=== PATIENT | male | born 1950 | race Caucasian/White ===

== ENCOUNTER → 2022-03-13 14:05 | Outpatient (BNVA) | payer SELFPAY | PROVIDERS: PCP Family Medicine; Visit Provider Psychiatry & Neurology Psychiatry | DX: F40.01 Agoraphobia with panic disorder (principal) | CPT/HCPCS: 99212 ==

== ENCOUNTER → 2022-07-03 13:47 | Outpatient (BNVA) | payer SELFPAY | PROVIDERS: PCP Family Medicine; Visit Provider Psychiatry & Neurology Psychiatry | DX: F40.01 Agoraphobia with panic disorder (principal) | CPT/HCPCS: 90833; 99212 ==

== ENCOUNTER 2023-01-01 15:30 | Outpatient (AMB) | payer SELFPAY ==
--- NOTE | 2024-01-06 10:04 | A.OFFPSYCH_ITS ---
Intake Intake Visit Reasons: depression Allergies No Known Allergies Allergy (Verified 03/13/22 14:16) HPI- Psychiatric Chief Complaint: depression HPI Narrative: Patient seen psychiatric follow-up. Patient has a history of panic disorder with agoraphobia and has for many years had a balancing act between how far he can drive without contributing to anxiety or having panic. His daughter is living in [place] have tried antidepressants in the past to see if SSRIs would help block panic attacks and improve approaching agoraphobia 6 symptoms this did not seem to be helpful in the past. Have discussed with the patient risks of chronic use of benzodiazepines which has been most effective for him and he is on a steady state dose of clonazepam denies feeling overmedicated or cognitive issues. He is aware we have discussed potential long-term consequences including possible increased risk of cognitive impairment or dementia. No evidence of abuse or tolerance or overuse. No evidence of diversion. 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 Antidepressant augmentation was never particularly helpful managing symptoms Mental Status Exam Mental Status Exam Patient Appearance: Well Grooomed Patient Orientation: Person, Place, Time and Situation Level of Consciousness: Awake Patient Behavior: Appropriate Mood Description: Anxious Affect Description: Appropriate and Blunted Patient Cognition Impaired: No Ability to Follow Directions: Excellent Speech Pattern: Clear Memory Description: Intact Thought Process: Intact Thought Content: positive for Intact Depressive Symptoms: Increased Anxiety Judgement and Insight: Patient with some recent increased anxiety unclear exactly what this is related to question daughter in [place] question issues related to getting house complete Assessment and Plan Assessment & Plan (1) Panic disorder with agoraphobia: Status: Acute Code(s): F40.01 - Agoraphobia with panic disorder Plan Discussed issues related to stabilizing agoraphobia symptoms and occasional panic attack. Also discussed use of clonazepam wafer if needed. Mood generally stable patient has shame and embarrassment the round panic disorder and agoraphobia always been something of an issue in the background he has been a prominent an active member in his community. Generally taking clonazepam 0.5 mg b.i.d. with an extra half as needed have discussed potential use antidepressant to help block panic attacks maybe blunt agoraphobia patient has tried challenging his comfort system over time and this has led to a certain balance in what he can and can not do Counseling and coordination of Care Details-Self Mgmt counseling: Issues related to managing anxiety and its impact Medication management counseling: Effectiveness, Side effects and Dosing range Diagnosis and Prognosis Counseling: Adequacy of current interventions Details: I spent [40] minutes reviewing the record, seeing the patient and documenting in the medical record. Counseling provided to the patient/caregiver as outlined below. Addressed patient/caregiver concerns regarding current medication regime including effective adherence. Addressed patient/caregiver concerns regarding diagnosis and prognosis including accuracy of diagnosis, prognosis over time, impact of diagnosis. Addressed patient/caregiver concerns regarding impact of recent stressors. 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
== END 2023-01-01 16:03 | disposition home or self-care (01) ==
LOC: HO.HOP 15:30
PROVIDERS: PCP Family Medicine; Visit Provider Psychiatry & Neurology Psychiatry
DX: F40.01 Agoraphobia with panic disorder (principal)
CPT/HCPCS: 99499

== ENCOUNTER → 2023-01-01 15:30 | Outpatient (BNVA) | payer SELFPAY | PROVIDERS: PCP Family Medicine; Visit Provider Psychiatry & Neurology Psychiatry ==

== ENCOUNTER → 2023-06-06 12:51 | Outpatient (BNVA) | payer OTHER, SELFPAY | PROVIDERS: PCP Family Medicine; Visit Provider Psychiatry & Neurology Psychiatry | DX: F40.01 Agoraphobia with panic disorder (principal) | CPT/HCPCS: 99212 ==

== ENCOUNTER 2023-06-06 13:11 | Outpatient (AMB) | payer OTHER, SELFPAY ==
--- NOTE | 2023-06-06 13:39 | A.OFFPSYCH_ITS ---
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 in spite of this has been successful [employer] Antidepressant augmentation was never particularly helpful managing symptoms Mental Status Exam Mental Status Exam Patient Appearance: Well Grooomed Patient Orientation: Person, Place, Time and Situation Level of Consciousness: Awake Patient Behavior: Appropriate Mood Description: Calm, Appropriate and Anxious Affect Description: Appropriate and Blunted Patient Cognition Impaired: No Ability to Follow Directions: Excellent Speech Pattern: Clear Memory Description: Intact Thought Process: Intact Thought Content: positive for Intact Depressive Symptoms: Increased Anxiety Judgement and Insight: Patient somewhat blunted some anxiety regarding how he could travel to [place] if needed Assessment and Plan Assessment & Plan (1) Panic disorder with agoraphobia: Status: Acute Code(s): F40.01 - Agoraphobia with panic disorder Plan pt generally stable did not find mirtazapine helpful evidence of abuse tolerance of clonazepam Medications: Discontinued 2 mirtazapine Discontinued Reason: Doctor's Order orally bedtime; 1/2-1 bedtime 30 tabs 1RF Counseling and coordination of Care Diagnosis and Prognosis Counseling: Problematic behaviors secondary to diagnosis and Adequacy of current interventions Details: I spent [38] minutes reviewing the record, seeing the patient and documenting in the medical record. Counseling provided to the patient/caregiver as outlined below. Addressed patient/caregiver concerns regarding current medication regime including effective adherence. Addressed patient/caregiver concerns regarding diagnosis and prognosis including accuracy of diagnosis, prognosis over time, impact of diagnosis. Addressed patient/caregiver concerns regarding impact of recent stressors. 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
== END 2023-06-06 13:53 | disposition home or self-care (01) ==
PROVIDERS: PCP Family Medicine; Visit Provider Psychiatry & Neurology Psychiatry
DX: F40.01 Agoraphobia with panic disorder (principal)
CPT/HCPCS: 90833; 99213

== ENCOUNTER 2023-10-03 13:29 | Outpatient (AMB) | payer SELFPAY ==
--- NOTE | 2024-01-08 12:36 | A.OFFPSYCH_ITS ---
Intake Intake Visit Reasons: Depression Allergies No Known Allergies Allergy (Verified 03/13/22 14:16) HPI- Psychiatric Chief Complaint: Depression HPI Narrative: Patient seen psychiatric follow-up. Has had some random panic which is somewhat unusual for him. One episode where he was not able to drive to the usual place that he was able to drive to her difficult time figuring out exactly handle this. Chronic issues related to his daughter being in [place]. 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 Antidepressant augmentation was never particularly helpful managing symptoms Mental Status Exam Mental Status Exam Patient Appearance: Well Grooomed Patient Orientation: Person, Place, Time and Situation Level of Consciousness: Awake Patient Behavior: Appropriate Mood Description: Appropriate and Anxious Affect Description: Appropriate and Blunted Patient Cognition Impaired: No Ability to Follow Directions: Excellent Speech Pattern: Clear Memory Description: Intact Thought Process: Intact Thought Content: positive for Intact Depressive Symptoms: Increased Anxiety Judgement and Insight: Patient somewhat blunted some anxiety finishing house recent episodes of panic Assessment and Plan Assessment & Plan (1) Panic disorder with agoraphobia: Status: Acute Code(s): F40.01 - Agoraphobia with panic disorder (2) Hypercholesteremia: Status: Acute Code(s): E78.00 - Pure hypercholesterolemia, unspecified Plan Patient again has not felt that augmentation antidepressants to block anxiety and panic attacks been helpful previously. He does feel secure taking relatively low-dose clonazepam 0.5 b.i.d. generally he is aware of potential long-term risks including increased risk possibly of dementia cognitively patient is intact. He does remain quite active Counseling and coordination of Care Details-Self Mgmt counseling: Issues related to managing anxiety stress potential for panic and how to manage this particularly when at times interfering. Question any relish anxiety to ongoing stress of building care home/Legacy house overlooking the [facility] Patient is quite capable and competent within his fear is leery changes that he can not control that has made at times dealing with agoraphobia panic attacks difficult Details-Med Mgmt counseling: Alternative treatments medications reviewed Diagnosis and Prognosis Counseling: Prognosis over time, Problematic behaviors secondary to diagnosis and Adequacy of current interventions Details: I spent [40] minutes reviewing the record, seeing the patient and documenting in the medical record. Counseling provided to the patient/caregiver as outlined below. Addressed patient/caregiver concerns regarding current medication regime including effective adherence. Addressed patient/caregiver concerns regarding diagnosis and prognosis including accuracy of diagnosis, prognosis over time, impact of diagnosis. Addressed patient/caregiver concerns regarding impact of recent stressors. 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
== END 2023-10-03 14:12 | disposition home or self-care (01) ==
LOC: HO.HOP 13:29
PROVIDERS: PCP Family Medicine; Visit Provider Psychiatry & Neurology Psychiatry
DX: F40.01 Agoraphobia with panic disorder (principal); E78.00 Pure hypercholesterolemia, unspecified
CPT/HCPCS: 99499

== ENCOUNTER → 2023-10-03 13:29 | Outpatient (BNVA) | payer SELFPAY | PROVIDERS: PCP Family Medicine; Visit Provider Psychiatry & Neurology Psychiatry ==

== ENCOUNTER 2024-02-05 13:28 | Outpatient (AMB) | payer SELFPAY ==
--- NOTE | 2024-02-05 14:00 | MHC.OFFVISPS ---
Intake Intake Visit Reasons: depression Allergies No Known Allergies Allergy (Verified 03/13/22 14:16) HPI- Psychiatric Chief Complaint: depression HPI Narrative: Pt seen in f/u has been more anxious regarding upcoming election pts mood has been ok generally has been traumatized by past panic attack starting 50 yrs ago daughter and s in law will not be reurning to [facility] but will be moving to [place] . 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 Antidepressant augmentation was never particularly helpful managing symptoms Mental Status Exam Mental Status Exam Patient Appearance: Well Grooomed Patient Orientation: Person, Place, Time and Situation Level of Consciousness: Awake Patient Behavior: Appropriate Mood Description: Appropriate and Anxious Affect Description: Appropriate and Blunted Patient Cognition Impaired: No Ability to Follow Directions: Excellent Speech Pattern: Clear Memory Description: Intact Thought Process: Intact Thought Content: positive for Intact Depressive Symptoms: Increased Anxiety Judgement and Insight: Patient somewhat blunted with inc anxiety regarding his panic and his daughter moving Assessment and Plan Assessment & Plan (1) Panic disorder with agoraphobia: Status: Acute Code(s): F40.01 - Agoraphobia with panic disorder (2) Hypercholesteremia: Status: Acute Code(s): E78.00 - Pure hypercholesterolemia, unspecified Plan have reviewed options to add ssri or snri to help dec panic and agoraphobic sx can also do more intensive cbt behavioral tx for panic Counseling and coordination of Care Details-Self Mgmt counseling: Issues related to having chronic panic agoraphobia its effects on his life and situation , effects on qol relations with d and ? of shame continue to encourage maintaining current fx Medication management counseling: Effectiveness and Side effects Details-Med Mgmt counseling: No diversion or tolerance with long-term relatively low-dose clonazepam use Diagnosis and Prognosis Counseling: Accuracy of diagnosis, Prognosis over time, Impact of diagnosis on life functions and Adequacy of current interventions Details: I spent [38] minutes reviewing the record, seeing the patient and documenting in the medical record. Counseling provided to the patient/caregiver as outlined below. Addressed patient/caregiver concerns regarding current medication regime including effective adherence. Addressed patient/caregiver concerns regarding diagnosis and prognosis including accuracy of diagnosis, prognosis over time, impact of diagnosis. Addressed patient/caregiver concerns regarding impact of recent stressors. 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
== END 2024-02-05 14:42 | disposition home or self-care (01) ==
LOC: HO.HOP 13:28
PROVIDERS: PCP Family Medicine; Visit Provider Psychiatry & Neurology Psychiatry
DX: F40.01 Agoraphobia with panic disorder (principal); E78.00 Pure hypercholesterolemia, unspecified
CPT/HCPCS: 99214

== ENCOUNTER → 2024-02-05 13:28 | Outpatient (BNVA) | payer SELFPAY | PROVIDERS: PCP Family Medicine; Visit Provider Psychiatry & Neurology Psychiatry | DX: F40.01 Agoraphobia with panic disorder (principal); E78.00 Pure hypercholesterolemia, unspecified | CPT/HCPCS: 99212 ==

== ENCOUNTER 2024-05-18 12:02 | Outpatient (AMB) | payer MEDICARE, SELFPAY ==
--- NOTE | 2024-05-18 12:17 | A.OFFPSYCH_ITS ---
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 Antidepressant augmentation was never particularly helpful managing symptoms Mental Status Exam Mental Status Exam Patient Appearance: Well Grooomed Patient Orientation: Person, Place, Time and Situation Level of Consciousness: Awake Patient Behavior: Appropriate Mood Description: Appropriate and Anxious Affect Description: Appropriate and Blunted Patient Cognition Impaired: No Ability to Follow Directions: Excellent Speech Pattern: Clear Memory Description: Intact Thought Process: Intact Thought Content: positive for Intact Depressive Symptoms: Increased Anxiety Judgement and Insight: Patient somewhat blunted with inc anxiety regarding his panic and his daughter moving Assessment and Plan Assessment & Plan (1) Panic disorder with agoraphobia: Status: Acute Code(s): F40.01 - Agoraphobia with panic disorder Plan pt seen in f/u [facility] has had some inc anxiety we discussed diff strategies and tx options Counseling and coordination of Care Pt. Self Management counseling: Breathing Medication management counseling: Effectiveness and Side effects Diagnosis and Prognosis Counseling: Adequacy of current interventions Details: I spent [35] minutes reviewing the record, seeing the patient and documenting in the medical record. Counseling provided to the patient/caregiver as outlined below. Addressed patient/caregiver concerns regarding current medication regime including effective adherence. Addressed patient/caregiver concerns regarding diagnosis and prognosis including accuracy of diagnosis, prognosis over time, impact of diagnosis. Addressed patient/caregiver concerns regarding impact of recent stressors. 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
--- OUTSIDE RECORDS SUMMARY | 2024-05-18 13:26 | XMS_ITS | Continuity of Care Document ---
Author Organization [facility] Address [address] [place] [address]- Care Team Providers Care Medicine Teacher Name Role Phone Melinda MENDIOLA, Trae Brandon Primary Care Physician Encounter [facility] Date(s): 03/31/24 - 04/30/24 [facility] Medicine [address] [place] [id number] Encounter Type: Triage Allergies, Adverse Reactions, Alerts No Known Allergies Immunizations Given and Recorded Vaccine Date Status Refusal Reason SARS-CoV-2 (COVID-19) mRNA-1273 vaccine 1 01/24/22 Recorded SARS-CoV-2 (COVID-19) mRNA-1273 vaccine 03/02/21 R ecorded SARS-CoV-2 (COVID-19) mRNA-1273 vaccine 08/12/20 R ecorded SARS-CoV-2 (COVID-19) mRNA-1273 vaccine 07/15/20 R ecorded tetanus/diphtheria/pertussis, acel(Tdap) 2 06/05/21 Given pneumococcal 13-valent vaccine 3 06/05/21 Given Zoster Vaccine Live 02/15/14 Given tetanus-diphtheria toxoids (Td) 04/15/00 Given 1Result Comment: bivalent booster @ [facility] 2Result Comment: [id number] 3Result Comment: [id number] Medications Aspirin = 81 mg, By Mouth, Daily, 0 Refills, 03/20/07 12:23:01 PM EST Start Date: 03/20/07 Status: Ordered Repeat number: 1 atorvastatin 40 mg oral tablet 1 tablet, By Mouth, Daily, # 90 tablet, 1 Refills, Maintenance, 04/21/24 1:29:00 PM EST, [id number], 175, cm, 04/01/24 14:23:00 EST, Height, 84.8, kg, 08/26/23 10:56:00 EDT, Dry Weight Start Date: 04/21/24 Status: Ordered Quantity: 90.0 Unit: tablet Repeat number: 2 CoQ10 = 300 mg, By Mouth, Daily, 0 Refills, Maintenance, 10/14/17 10:35:31 AM EDT Start Date: 10/14/17 Status: Ordered Repeat number: 1 Multivitamin By Mouth, Daily, 0 Refills, Maintenance, 03/01/15 12:01:23 PM EST Start Date: 03/01/15 Status: Ordered Repeat number: 1 [employer] 1 capsule, By Mouth, Daily, 0 Refills, Maintenance, 03/01/15 12:00:40 PM EST Start Date: 03/01/15 Status: Ordered Repeat number: 1 Vitamin B12 0 Refills, Maintenance, 10/14/17 10:35:25 AM EDT Start Date: 10/14/17 Status: Ordered Repeat number: 1 Vitamin C By Mouth, Daily, 0 Refills, Maintenance, 10/14/17 10:35:14 AM EDT Start Date: 10/14/17 Status: Ordered Repeat number: 1 Vitamin D3 By Mouth, 0 Refills, Maintenance, 10/14/17 10:35:20 AM EDT Start Date: 10/14/17 Status: Ordered Repeat number: 1 Problem List Condition Confirmation Course Effective Dates Status H ealth Status Informant Hypertension Confirmed Active Mild aortic stenosis Confirmed Active 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, 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 Overweight Confirmed Active Prediabetes Confirmed Active Social History Social History Type Response Smoking Status Never smoker; Other: recreational smoker, quit smoking >20 years ago.; entered on: 10/14/17 Sex Sex Representation Male (finding) Patient Care team information Care Team Personnel Name: Trae Lawrence MD Position: S Physician - Primary Care Member Role: PCP Address: [address] [place] [id number] Telecom: Care Team Related Persons Name: PT WANTS NONE, PT WANTS NONE Name: ABHI GUERRA Insurance Providers Guarantor name: [facility] Information #: 1 Payer: [employer] [facility] [employer] Member Number: NA Policy Number: NA Group Number: NA
== END 2024-05-18 15:15 | disposition home or self-care (01) ==
LOC: HO.HOP 12:02
PROVIDERS: PCP Family Medicine; Visit Provider Psychiatry & Neurology Psychiatry
DX: F40.01 Agoraphobia with panic disorder (principal)
CPT/HCPCS: 90833; 99213

== ENCOUNTER → 2024-05-18 12:02 | Outpatient (BNVA) | payer SELFPAY | PROVIDERS: PCP Family Medicine; Visit Provider Psychiatry & Neurology Psychiatry | DX: F40.01 Agoraphobia with panic disorder (principal); F32.A Depression, unspecified; Z71.89 Other specified counseling | CPT/HCPCS: 99212 ==

== ENCOUNTER 2024-07-14 13:44 | Outpatient (AMB) | payer SELFPAY ==
--- NOTE | 2024-07-14 14:23 | MHC.OFFVISPS ---
Intake Intake Visit Reasons: depression Allergies No Known Allergies Allergy (Verified 03/13/22 14:16) HPI- Psychiatric Chief Complaint: depression HPI Narrative: pt seen in f/u has been concerned regarding current political climate has been having some inc anxiety at times when driving generally feels ok daughter in [place] want to live in [place]. Patient has had to retest some of his driving expectations and range which at times has become more limited. He does not feel he can drive take a train or fly to visit his daughter. Patient continues on clonazepam generally 0.5 mg twice a day. 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 Antidepressant augmentation was never particularly helpful managing symptoms Mental Status Exam Mental Status Exam Patient Appearance: Well Grooomed Patient Orientation: Person, Place, Time and Situation Level of Consciousness: Awake Patient Behavior: Appropriate Mood Description: Appropriate and Anxious Affect Description: Appropriate and Blunted Patient Cognition Impaired: No Ability to Follow Directions: Excellent Speech Pattern: Clear Memory Description: Intact Thought Process: Intact Thought Content: positive for Intact Depressive Symptoms: Increased Anxiety Judgement and Insight: Patient somewhat blunted with inc anxiety regarding his panic and his daughter moving Assessment and Plan Assessment & Plan (1) Panic disorder with agoraphobia: Status: Acute Code(s): F40.01 - Agoraphobia with panic disorder Plan Pt seen in f/u has occ panic attacks again discussed use of medication low dose ssri discussed strategies to not let current political climate take over his psyche cont klonapin no evidence of overuse sedation or other side effects Need to limit time obsessing about political issues and current situation so as to not take ovaries psyche increased stress and increase panic and agoraphobia Counseling and coordination of Care Pt. Self Management counseling: Mindfulness Details-Self Mgmt counseling: Issues related to managing panic and agoraphobia Details-Med Mgmt counseling: Again discussed pros and cons of different approaches to managing increased panic and agoraphobia Diagnosis and Prognosis Counseling: Accuracy of diagnosis, Prognosis over time, Problematic behaviors secondary to diagnosis and Adequacy of current interventions Details: I spent [40] minutes reviewing the record, seeing the patient and documenting in the medical record. Counseling provided to the patient/caregiver as outlined below. Addressed patient/caregiver concerns regarding current medication regime including effective adherence. Addressed patient/caregiver concerns regarding diagnosis and prognosis including accuracy of diagnosis, prognosis over time, impact of diagnosis. Addressed patient/caregiver concerns regarding impact of recent stressors. 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
== END 2024-07-14 15:22 | disposition home or self-care (01) ==
LOC: HO.HOP 13:44
PROVIDERS: PCP Family Medicine; Visit Provider Psychiatry & Neurology Psychiatry
DX: F40.01 Agoraphobia with panic disorder (principal)
CPT/HCPCS: 99214

== ENCOUNTER → 2024-07-14 13:44 | Outpatient (BNVA) | payer MEDICARE, SELFPAY | PROVIDERS: PCP Family Medicine; Visit Provider Psychiatry & Neurology Psychiatry | DX: F40.01 Agoraphobia with panic disorder (principal) | CPT/HCPCS: 99212 ==

== ENCOUNTER 2025-02-24 13:59 | Outpatient (AMB) | payer SELFPAY ==
--- NOTE | 2025-02-24 14:23 | A.OFFPSYCH_ITS ---
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 Allergies No Known Allergies Allergy (Verified 03/13/22 14:16) Medication List - Last Reconciled 02/24/25 by Lucian Swanson MD atorvastatin 40 mg PO DAILY clonazepam 0.5 mg PO TID PRN HPI- Psychiatric Chief Complaint: Depression HPI Narrative: Patient is a 74-year-old male with a history of some amount of recurrent anxiety intermittent limited symptom panic and agoraphobia symptoms that limit his driving range to approximately 30 or so miles. 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 The patient manages multiple properties has been very active in real estate for much of his adult life. He does have a daughter son-in-law currently living in [place]. He is unable to travel and visit them and they do periodically visit with him. Patient has tried an SSRI in the past which she felt did not add anything regarding blocking of limited symptom panic or allowing him to confront his agoraphobia symptoms. Patient for many years was consumed with shame regarding this condition and did everything he could to hide this from others and is most likely limited his access to treatment for number of years early on as the [place] phobic symptoms became entrenched and intermittently could become overwhelming when he was driving past a certain point. The patient has time tried to retrain the amount of distance that he can drive gradually expanding. He is generally content I have recommended seeing psychotherapist clinical psychologist who specializes in the treatment of anxi ety disorders patient has been reticent to engage this and has managed to have a successful career and generally full life in [place] of the limitations that his agoraphobia symptoms presented. He continues on clonazepam chronically 0.5 b.i.d. generally and this has been enough mostly to block most panic and has allowed the patient to function chronically. There is no evidence of cognitive impairment no evidence of abuse tolerance misuse or diversion. 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 Antidepressant augmentation was never particularly helpful managing symptoms Mental Status Exam Mental Status Exam Patient Appearance: Well Grooomed Patient Orientation: Person, Place, Time and Situation Level of Consciousness: Awake Patient Behavior: Appropriate Mood Description: Appropriate and Anxious Affect Description: Appropriate and Blunted Patient Cognition Impaired: No Ability to Follow Directions: Excellent Speech Pattern: Clear Memory Description: Intact Thought Process: Intact Thought Content: positive for Intact Depressive Symptoms: Increased Anxiety Assessment and Plan Assessment & Plan (1) Panic disorder with agoraphobia: Status: Acute Code(s): F40.01 - Agoraphobia with panic disorder Plan Patient generally stable on current regimen. Aware of association between chronic use of benzodiazepines and cognitive impairment no evidence noted. Patient did not feel SSRI trials in the past were helpful. He has generally can tend with his current psychiatric situation has accepted the limitations that the agoraphobia can make in his life. 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 He is hoping to simplify his current situation so that it is less stressful and time consuming. Counseling and coordination of Care Details-Self Mgmt counseling: Issues related to managing chronic stress and agoraphobia. Medication management counseling: Effectiveness and Side effects Diagnosis and Prognosis Counseling: Impact of diagnosis on life functions Details-Diagnosis/Prognosis counseling: Patient is not interested in more intensive interventions comfortable feels more secure the way things are continue plan of careconsider 10 valium if ever needed to travel to [facility] for testing etc Details: I spent [] minutes reviewing the record, seeing the patient and documenting in the medical record. Counseling provided to the patient/caregiver as outlined below. Addressed patient/caregiver concerns regarding current medication regime including effective adherence. Addressed patient/caregiver concerns regarding diagnosis and prognosis including accuracy of diagnosis, prognosis over time, impact of diagnosis. Addressed patient/caregiver concerns regarding impact of recent stressors. 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
== END 2025-02-24 14:43 | disposition home or self-care (01) ==
LOC: HO.HOP 13:59
PROVIDERS: PCP Family Medicine; Visit Provider Psychiatry & Neurology Psychiatry
DX: F40.01 Agoraphobia with panic disorder (principal)
CPT/HCPCS: 90833; 99213

== ENCOUNTER → 2025-02-24 13:59 | Outpatient (BNVA) | payer MEDICARE, SELFPAY | PROVIDERS: PCP Family Medicine; Visit Provider Psychiatry & Neurology Psychiatry | DX: F40.01 Agoraphobia with panic disorder (principal) | CPT/HCPCS: 99212 ==